=== PATIENT | female | born 1975 | race Caucasian/White ===

== ENCOUNTER 2019-04-13 00:13 | Emergency (ER) | payer SELFPAY ==
[~2019-04-13] VITALS: Ht 154.9 cm; Wt 52.2 kg
[2019-04-13 00:52] VITALS: BP 192/68
[2019-04-13] MEDS ORDERED: HYDR-3164 PO (01:22)
[2019-04-13] MEDS ORDERED: HYDROcodone/APAP 5/325MG 1 TAB TABLET PO ONE (01:30)
--- NOTE | 2019-04-13 03:24 | PHYS DOC ---
Past Medical History Past Medical History: Diabetes-Type I, Renal Failure Past Surgical History: Other Additional Past Surgical Histo: 1 kidney removed Alcohol Use: Occasionally Drug Use: None Adult General Chief Complaint Chief Complaint: HAND PROBLEM HPI HPI Patient is a 43 year old female presenting with him pain she tripped and fell landed on her affected hand had a fracture of the fifth metacarpal a while back her surgery was recommended but she never got it. She also has a history of hypertension she knows about that as well pain is moderate dull Current Medications Current Medications Current Medications Medications (Trade) Dose Ordered Sig/Arian Start Time Stop Time Status Last Admin Dose Admin Acetaminophen/ Hydrocodone Bitart (Lortab 5/325) 2 tab 1X ONCE 04/13/19 01:30 04/13/19 01:31 DC Allergies Allergies Allergies Coded Allergies Type Severity Reaction Last Updated Verified Penicillins Allergy Intermediate hives 04/13/19 Yes Physical Exam Physical Exam Constitutional: Well developed, well nourished, no acute distress, non-toxic appearance. [] HENT: Normocephalic, atraumatic, bilateral external ears normal, oropharynx moist, no oral exudates, nose normal. [] Eyes: PERRLA, EOMI, conjunctiva normal, no discharge. [] Neck: Normal range of motion, no tenderness, supple, no stridor. [] Pulmonary: Normal respiratory effort no increased work of breathing no obvious chest wall trauma Extremities: Tenderness to palpation noted at the right fifth metacarpal Neurologic: Alert and oriented X 3, normal motor function, normal sensory function, no focal deficits noted. [] Psychologic: Affect normal, judgement normal, mood normal. [] Current Patient Data Vital Signs Vital Signs Date Time Temp Pulse Resp B/P (MAP) Pulse Ox O2 Delivery O2 Flow Rate FiO2 04/13/19 00:52 97.7 69 16 192/68 (109) 99 Room Air 97.7 EKG EKG [] Radiology/Procedures Radiology/Procedures [] Impressions: Physical metacarpal fracture with displacement Course & Med Decision Making Course & Med Decision Making Pertinent Labs and Imaging studies reviewed. 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 I recommended that she find a hand surgeon to follow-up within 7 days she says she will be able to do that. Pain control was given ulnar gutter splint was placed I checked placement Of note patient did leave without getting her Sweetser prescription. Dragon Disclaimer Dragon Disclaimer This electronic medical record was generated, in whole or in part, using a voice recognition dictation system. Departure Departure Impression: Primary Impression: Fracture, metacarpal Disposition: HOME, SELF-CARE Condition: STABLE Patient Instructions: Metacarpal Fracture-SportsMed Additional Instructions: SEE A HAND SURGEON IN SEVEN DAYS Scripts Hydrocodone/Apap 5-325 (NORCO 5-325 TABLET) 1 Each Tablet 1-2 EACH PO PRN Q6HRS PRN for PAIN, #15 as needed for pain Prov: GRACIELA PONCE MD 04/13/19 GRACIELA PONCE MD Apr 13, 2019 03:24
--- NOTE | 2019-04-13 05:31 | RAD ---
HAND RIGHT 3V 04/13/2019 12:46 AM INDICATION: Trauma COMPARISON: None available. TECHNIQUE: 3 views the right hand are provided. FINDINGS: There is no acute fracture or dislocation. Remote healed fracture of the fifth metacarpal. Bone mineralization is within normal limits. Joint spaces are maintained. Regional soft tissues are within normal limits. There is no soft tissue gas or osseous erosion. IMPRESSION: No acute fracture or dislocation. There is a remote healed fracture of the fifth metacarpal with minimal persistent apex dorsal angulation. Electronically signed by: Amy Driver MD (04/13/2019 5:28 AM) [id number]
== END 2019-04-13 01:39 | disposition home or self-care (01) ==
LOC: ER 01:00
DX: S62.396A Other fracture of fifth metacarpal bone, right hand, initial encounter for closed fracture (principal); E10.9 Type 1 diabetes mellitus without complications; Z90.5 Acquired absence of kidney; Z88.0 Allergy status to penicillin; W23.0XXA Caught, crushed, jammed, or pinched between moving objects, initial encounter; Y93.89 Activity, other specified; Y92.89 Other specified places as the place of occurrence of the external cause; Y99.8 Other external cause status
CPT/HCPCS: 29125; 73130; 99284